=== PATIENT | female | born 1955 | race Caucasian/White ===

== ENCOUNTER 2017-03-01 08:36 | Emergency (ER) | payer BC ==
[2017-03-01 09:21] VITALS: BP 125/70
--- NOTE | 2017-03-01 09:56 | EDM.PDOC ---
ED HPI GENERAL MEDICAL PROBLEM - General Chief Complaint: Chest Pain Stated Complaint: chest pain Time Seen by Provider: 03/01/17 08:40 Source of Information: Reports: Patient History Limitations: Reports: No Limitations - History of Present Illness INITIAL COMMENTS - FREE TEXT/NARRATIVE: This is a 61yo F here for chest pain left sided early this am around 5 am. Patient states she usually has this pain and takes 2 nitro and it resolves. This time she took 3 nitro with some improvement but no improvement of her chest pressure. She states it happens the most frequently when she is sleeping around 5 am. Patient does snore and has not had a sleep study. She does not sleep well and takes otc sleep medication that helps her get to sleep but does not stay asleep. Patient has a history of angina and has been worked up for cardiac issues in the past. She has had a coronary angiogram on 08/10/16 with a normal assessment (50% ostial-left circumflex only) and diagnosed coronary vasospasm during the angiogram. Onset: Sudden Duration: Hour(s):, Constant, Improving Location: Reports: Chest Severity: Mild Improves with: Reports: Medication Worsens with: Reports: None Associated Symptoms: Reports: Chest Pain chest pressure Pain Score (Numeric/FACES): 2 - Related Data Allergies Allergy/AdvReac Type Severity Reaction Status Date / Time egg Allergy Airway Verified 03/01/17 09:03 Tightness meperidine HCl [From Demerol] Allergy Hallucinati Verified 03/01/17 09:03 ons Home Meds: Home Meds Omeprazole [Omeprazole] 20 mg PO DAILY 04/26/15 [History] Aspirin [Ecotrin] 81 mg PO DAILY 07/10/16 [History] Metoprolol Succinate [Toprol XL] 25 mg PO DAILY 07/10/16 [History] Nitroglycerin [Nitrostat] 0.4 mg SL ASDIRECTED PRN 07/10/16 [History] Fish Oil/DHA/EPA [Fish Oil 1,200 MG] 1 each PO DAILY 03/01/17 [History] Pravastatin [Pravachol] 20 mg PO BEDTIME 03/01/17 [History] amLODIPine [Norvasc] 5 mg PO BID 03/01/17 [History] buPROPion HCl [Wellbutrin Xl] 150 mg PO ASDIRECTED 03/01/17 [History] Past Medical History HEENT History: Reports: Impaired Vision Cardiovascular History: Reports: Angina, High Cholesterol, Hypertension Musculoskeletal History: Reports: Arthritis, Back Pain, Chronic Other Musculoskeletal History: Pt states that she has a long standing history of back, knee and shoulder pain that she has had therapy for in the past. Psychiatric History: Reports: Anxiety, Depression - Past Surgical History GI Surgical History: Reports: Cholecystectomy Female Surgical History: Reports: Breast Reduction, Hysterectomy Social & Family History - Family History Family Medical History: Unobtainable - Tobacco Use Smoking Status *Q: Former Smoker Used Tobacco, but Quit: Yes Month Tobacco Last Used: february Second Hand Smoke Exposure: Yes - Caffeine Use Caffeine Use: Reports: Coffee - Recreational Drug Use Recreational Drug Use: No ED ROS GENERAL - Review of Systems Review Of Systems: ROS reveals no pertinent complaints other than HPI. ED EXAM, GENERAL - Physical Exam Exam: See Below Exam Limited By: No Limitations General Appearance: Alert, WD/WN, No Apparent Distress Eye Exam: Bilateral Eye: EOMI, PERRL Ears: Normal External Exam Nose: Normal Inspection Throat/Mouth: Normal Inspection Head: Atraumatic, Normocephalic Neck: Normal Inspection Respiratory/Chest: No Respiratory Distress, Lungs Clear Cardiovascular: Normal Peripheral Pulses, Regular Rate, Rhythm GI/Abdominal: Normal Bowel Sounds Extremities: Normal Inspection Neurological: Alert, Oriented, CN II-XII Intact Skin Exam: Warm, Dry, Intact Course - Vital Signs Last Recorded V/S: Last Vital Signs Temp Pulse 65 03/01/17 10:08 Resp BP 125/70 03/01/17 10:08 Pulse Ox 98 03/01/17 10:08 - Orders/Labs/Meds Orders: Active Orders 24 hr Category Date Time Status EKG Documentation Completion [RC] ASDIRECTED Care 03/01/17 08:45 Active Labs: Laboratory Tests 03/01/17 03/01/17 03/01/17 Range/Units 09:15 09:15 09:15 WBC 5.9 D (4.0-11.0) K/uL RBC 4.13 (3.80-5.80) M/uL Hgb 12.9 (11.5-16.5) g/dL Hct 38.3 (37.0-47.0) % MCV 93 (76-96) fL MCH 31.2 (27.0-32.0) pg MCHC 33.7 (31.0-35.0) g/dL RDW 13.3 (11.0-16.0) % Plt Count 187 (150-500) K/uL MPV 11.1 H (6.0-10.0) fL Neut % (Auto) 45.4 (45.0-70.0) % Lymph % (Auto) 31.7 (20.0-40.0) % [place] % (Auto) 12.8 H (3.0-10.0) % Eos % (Auto) 9.4 H (1.0-5.0) % Baso % (Auto) 0.7 H (0.0-0.5) % Neut # (Auto) 2.66 (2.00-7.50) K/uL Lymph # (Auto) 1.86 (1.50-4.00) K/uL [place] # (Auto) 0.75 (0.20-0.80) K/uL Eos # (Auto) 0.55 H (0.04-0.40) K/uL Baso # (Auto) 0.04 (0.02-0.10) K/uL PT 9.5 (9.0-11.5) sec INR 1.0 (1.0-3.5) Sodium 140 (136-145) mmol/L Potassium 4.2 (3.5-5.1) mmol/L Chloride 104 (98-107) mmol/L Carbon Dioxide 28.1 (21.0-32.0) mmol/L Anion Gap 12.1 (5.0-15.0) mmol/L BUN 14 D (8-26) mg/dL Creatinine 0.72 D (0.55-1.02) mg/dL Est Cr Clr Drug Dosing 77.77 mL/min Estimated GFR (MDRD) > 60 (>60) MLS/MIN BUN/Creatinine Ratio 19.4 (6-25) Glucose 114 H (74-100) mg/dL Calcium 9.3 (8.5-10.1) mg/dL Total Bilirubin 0.5 (0.0-1.0) mg/dL AST 25 (15-37) U/L ALT 29 (12-78) U/L Alkaline Phosphatase 79 (46-116) U/L Troponin I < 0.017 (0.000-0.060) ng/mL B-Natriuretic Peptide 47 (0-125) pg/mL Total Protein 7.2 (6.4-8.2) g/dL Albumin 3.9 (3.4-5.0) g/dL Globulin 3.3 (2.2-4.2) g/dL Albumin/Globulin Ratio 1.2 (0.8-2.0) TSH, Ultra Sensitive 2.374 (0.358-3.740) uIU/mL Departure - Departure Time of Disposition: 10:00 Disposition: Home, Self-Care 01 Condition: Good Clinical Impression: Angina at rest Instructions: Angina Pectoris, [id number] Referrals: PCP,None [Ordering Only Provider] - Forms: ED Department Discharge Additional Instructions: Follow up with your burrer machine at your earliest convenience, especially if you are still having the pressure after the start of your new medication. Follow up in the ER if the pressure gets worse or the pressure/pain changes. 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 Imdur and all your other medication will stay the same. Discussed plan of care with Cardiology and will start Imdur as directed. No changes to other medications. Discussed f/u as instructed. Patient agrees with plan of care and f/u with Cardiology and ER/clinic as directed. F/u immediately if symptoms present again. - My Orders Last 24 Hours: My Active Orders 03/01/17 08:45 EKG Documentation Completion [RC] ASDIRECTED - Assessment/Plan Last 24 Hours: My Active Orders 03/01/17 08:45 EKG Documentation Completion [RC] ASDIRECTED
--- NOTE | 2017-03-01 12:41 | CR ---
DATE OF SERVICE: 03/01/2017 CLINICAL DATA: Chest pain. AP CHEST No priors. The heart size is normal. The lungs are clear. No pneumothorax. No pleural effusions. No other significant findings. IMPRESSION: No evidence of acute intrathoracic disease. [id number] [facility]
== END 2017-03-01 11:22 | disposition home or self-care (01) ==
LOC: LB.ED 08:36
DX: I20.9 Angina pectoris, unspecified (principal); I10 Essential (primary) hypertension; E78.00 Pure hypercholesterolemia, unspecified; F32.9 Major depressive disorder, single episode, unspecified; Z79.82 Long term (current) use of aspirin; Z79.899 Other long term (current) drug therapy; Z87.891 Personal history of nicotine dependence; Z88.6 Allergy status to analgesic agent; Z91.012 Allergy to eggs
CPT/HCPCS: 36415; 71010; 80053; 83880; 84443; 84484; 85025; 85610; 93005; 99285-25

== ENCOUNTER 2017-07-16 07:37 | Emergency (ER) | payer BC ==
[2017-07-16] MEDS ORDERED: Aspirin 81 MG Tab.Chew PO ONE (07:54)
[2017-07-16] MEDS ORDERED: Morphine 2 MG/ML Syringe IVPUSH ONE (07:54)
[2017-07-16] MEDS ORDERED: GI Cocktail Oral Solution 30 ML PO ONE (08:24)
[2017-07-16] MEDS: Morphine 10 MG/ML Syringe ONE ×2 (08:45→09:31)
--- NOTE | 2017-07-16 08:46 | EDM.PDOC ---
ED HPI GENERAL MEDICAL PROBLEM - General Chief Complaint: Chest Pain Stated Complaint: CHEST PAIN Time Seen by Provider: 07/16/17 08:15 Source of Information: Reports: Patient, RN History Limitations: Reports: No Limitations - History of Present Illness INITIAL COMMENTS - FREE TEXT/NARRATIVE: 61 yr female presents to ER with chest pain, started 2am today, woke her up from sleep. She took several nitro. under tongue for relief of pain and presents to ER this am. She was seen by MIRANDA Bell for initial work-up. Please refer to his notes for this. I did assume care for her 0815 this am. States pain has improved but persists to mid chest area. VS stable, NSR per EKG and chest x-ray normal. Troponin is normal. States history of blocked cardiac artery and unable to have stent. States last stress test adn echo were about 2 yr ago. Onset: Today Onset Date: 07/16/17 Onset Time: 02:00 Duration: Constant Location: Reports: Chest Quality: Reports: Pressure Severity: Moderate Improves with: Reports: Medication, Rest Mid-Sternal Pain Score (Numeric/FACES): 3 - Related Data Allergies Allergy/AdvReac Type Severity Reaction Status Date / Time egg Allergy Airway Verified 03/01/17 09:03 Tightness meperidine HCl [From Demerol] Allergy Hallucinati Verified 03/01/17 09:03 ons Home Meds: Home Meds Omeprazole 20 mg PO DAILY 04/26/15 [History] Aspirin [Ecotrin] 81 mg PO DAILY 07/10/16 [History] Metoprolol Succinate [Toprol XL] 25 mg PO DAILY 07/10/16 [History] Nitroglycerin [Nitrostat] 0.4 mg SL ASDIRECTED PRN 07/10/16 [History] Fish Oil/DHA/EPA [Fish Oil 1,200 MG] 1 each PO DAILY 03/01/17 [History] Pravastatin [Pravachol] 20 mg PO BEDTIME 03/01/17 [History] amLODIPine [Norvasc] 5 mg PO BID 03/01/17 [History] buPROPion HCl [Wellbutrin Xl] 150 mg PO ASDIRECTED 03/01/17 [History] atoMOXetine [Strattera] 40 mg PO DAILY 07/16/17 [History] Past Medical History HEENT History: Reports: Impaired Vision Cardiovascular History: Reports: Angina, High Cholesterol, Hypertension Musculoskeletal History: Reports: Arthritis, Back Pain, Chronic Other Musculoskeletal History: Pt states that she has a long standing history of back, knee and shoulder pain that she has had therapy for in the past. Psychiatric History: Reports: Anxiety, Depression - Past Surgical History GI Surgical History: Reports: Cholecystectomy Female Surgical History: Reports: Breast Reduction, Hysterectomy Social & Family History - Family History Family Medical History: Unobtainable - Tobacco Use Smoking Status *Q: Former Smoker Used Tobacco, but Quit: Yes Month/Year Tobacco Last Used: february Second Hand Smoke Exposure: Yes - Caffeine Use Caffeine Use: Reports: Coffee - Recreational Drug Use Recreational Drug Use: No ED ROS GENERAL - Review of Systems Review Of Systems: See Below Constitutional: Reports: Diaphoresis. Denies: Fever, Chills HEENT: Reports: No Symptoms Respiratory: Denies: Shortness of Breath, Wheezing Cardiovascular: Reports: Chest Pain (States pressure to midsternal chest area and upper epigastric area. ), Other (History of chest pain, angiogram in past, stress test and echo about 3 yr ago.). Denies: Blood Pressure Problem, Edema, Palpitations Endocrine: Reports: No Symptoms GI/Abdominal: Reports: Abdominal Pain, Other (History of ulcer). Denies: Constipation, Diarrhea : Reports: No Symptoms Musculoskeletal: Reports: Back Pain Skin: Reports: No Symptoms Neurological: Reports: No Symptoms Psychiatric: Reports: No Symptoms Hematologic/Lymphatic: Reports: No Symptoms Immunologic: Reports: No Symptoms ED EXAM, GENERAL - Physical Exam Exam: See Below Exam Limited By: No Limitations General Appearance: Alert, No Apparent Distress. No: Anxious Ears: Hearing Grossly Normal Nose: Normal Mucosa Throat/Mouth: Normal Voice Head: Atraumatic, Normocephalic Neck: Normal Inspection, Supple, Non-Tender Respiratory/Chest: No Respiratory Distress, Lungs Clear, Normal Breath Sounds Cardiovascular: Normal Peripheral Pulses, Regular Rate, Rhythm, No Edema, No Murmur Peripheral Pulses: 2+: Radial (L), Radial (R), Dorsalis Pedis (L), Dorsalis Pedis (R) GI/Abdominal: Normal Bowel Sounds, Soft, Non-Tender Back Exam: Normal Inspection Extremities: Normal Inspection, Normal Range of Motion, Non-Tender, No Pedal Edema Neurological: Alert, Oriented, Normal Cognition Psychiatric: Normal Affect Skin Exam: Warm, Other (occasional diaphoresis, somewhat pale) Lymphatic: No Adenopathy EKG INTERPRETATION EKG Date: 07/16/17 Time: 07:44 Rhythm: NSR Course - Vital Signs Last Recorded V/S: Last Vital Signs Temp 98.7 F 07/16/17 09:46 Pulse 70 07/16/17 09:46 Resp 18 07/16/17 09:46 BP 138/54 L 07/16/17 09:46 Pulse Ox 96 07/16/17 09:46 - Orders/Labs/Meds Orders: Active Orders 24 hr Category Date Time Status EKG Documentation Completion [RC] ASDIRECTED Care 07/16/17 07:53 Active Chest 1V Frontal [CR] Stat Exams 07/16/17 07:55 Taken Labs: Laboratory Tests 07/16/17 07/16/17 07/16/17 Range/Units 08:00 08:00 08:00 WBC 7.4 D (4.0-11.0) K/uL RBC 4.15 (3.80-5.80) M/uL Hgb 13.2 (11.5-16.5) g/dL Hct 38.8 (37.0-47.0) % MCV 94 (76-96) fL MCH 31.8 (27.0-32.0) pg MCHC 34.0 (31.0-35.0) g/dL RDW 13.0 (11.0-16.0) % Plt Count 216 (150-500) K/uL MPV 10.8 H (6.0-10.0) fL Neut % (Auto) 63.1 (45.0-70.0) % Lymph % (Auto) 22.4 (20.0-40.0) % [place] % (Auto) 9.3 (3.0-10.0) % Eos % (Auto) 4.9 (1.0-5.0) % Baso % (Auto) 0.3 (0.0-0.5) % Neut # (Auto) 4.68 (2.00-7.50) K/uL Lymph # (Auto) 1.66 (1.50-4.00) K/uL [place] # (Auto) 0.69 (0.20-0.80) K/uL Eos # (Auto) 0.36 (0.04-0.40) K/uL Baso # (Auto) 0.02 (0.02-0.10) K/uL PT (9.0-11.5) sec INR (1.0-3.5) APTT 21.7 L (27.0-35.0) SECONDS Sodium 140 (136-145) mmol/L Potassium 4.3 (3.5-5.1) mmol/L Chloride 104 (98-107) mmol/L Carbon Dioxide 23.0 (21.0-32.0) mmol/L Anion Gap 17.3 H (5.0-15.0) mmol/L BUN 15 (8-26) mg/dL Creatinine 0.75 (0.55-1.02) mg/dL Est Cr Clr Drug Dosing TNP Estimated GFR (MDRD) > 60 (>60) MLS/MIN BUN/Creatinine Ratio 20.0 (6-25) Glucose 124 H (74-100) mg/dL Calcium 8.0 L (8.5-10.1) mg/dL Total Bilirubin 0.4 (0.0-1.0) mg/dL AST 22 (15-37) U/L ALT 25 (12-78) U/L Alkaline Phosphatase 71 (46-116) U/L Troponin I < 0.017 (0.000-0.060) ng/mL Total Protein 7.1 (6.4-8.2) g/dL Albumin 3.7 (3.4-5.0) g/dL Globulin 3.4 (2.2-4.2) g/dL Albumin/Globulin Ratio 1.1 (0.8-2.0) 07/16/17 Range/Units 08:00 WBC (4.0-11.0) K/uL RBC (3.80-5.80) M/uL Hgb (11.5-16.5) g/dL Hct (37.0-47.0) % MCV (76-96) fL MCH (27.0-32.0) pg MCHC (31.0-35.0) g/dL RDW (11.0-16.0) % Plt Count (150-500) K/uL MPV (6.0-10.0) fL Neut % (Auto) (45.0-70.0) % Lymph % (Auto) (20.0-40.0) % [place] % (Auto) (3.0-10.0) % Eos % (Auto) (1.0-5.0) % Baso % (Auto) (0.0-0.5) % Neut # (Auto) (2.00-7.50) K/uL Lymph # (Auto) (1.50-4.00) K/uL [place] # (Auto) (0.20-0.80) K/uL Eos # (Auto) (0.04-0.40) K/uL Baso # (Auto) (0.02-0.10) K/uL PT 9.4 (9.0-11.5) sec INR 0.9 L (1.0-3.5) APTT (27.0-35.0) SECONDS Sodium (136-145) mmol/L Potassium (3.5-5.1) mmol/L Chloride (98-107) mmol/L Carbon Dioxide (21.0-32.0) mmol/L Anion Gap (5.0-15.0) mmol/L BUN (8-26) mg/dL Creatinine (0.55-1.02) mg/dL Est Cr Clr Drug Dosing Estimated GFR (MDRD) (>60) MLS/MIN BUN/Creatinine Ratio (6-25) Glucose (74-100) mg/dL Calcium (8.5-10.1) mg/dL Total Bilirubin (0.0-1.0) mg/dL AST (15-37) U/L ALT (12-78) U/L Alkaline Phosphatase (46-116) U/L Troponin I (0.000-0.060) ng/mL Total Protein (6.4-8.2) g/dL Albumin (3.4-5.0) g/dL Globulin (2.2-4.2) g/dL Albumin/Globulin Ratio (0.8-2.0) Meds: Medications Discontinued Medications Generic Name Dose Route Start Last Admin Trade Name Freq PRN Reason Stop Dose Admin Al Hydroxide/Mg Hydroxide 30 ml 07/16/17 08:24 07/16/17 08:25 Gi Cocktail PO 07/16/17 08:25 30 ml ONETIME ONE Administration Aspirin 324 mg 07/16/17 07:54 04/06/18 07:45 Aspirin PO 07/16/17 07:55 324 mg ONETIME ONE Administration Clopidogrel Bisulfate 600 mg 07/16/17 08:55 07/16/17 09:00 Plavix PO 07/16/17 08:56 600 mg ONETIME ONE Administration Clopidogrel Bisulfate Confirm 07/16/17 09:02 07/16/17 09:18 Plavix Administered 07/16/17 09:03 Not Given Dose 150 mg .ROUTE .STK-MED ONE Heparin Sodium (Porcine) 4,000 units 07/16/17 09:23 07/16/17 09:40 Heparin Sodium IVPUSH 07/16/17 09:24 4,000 units .BOLUS ONE Administration Sodium Chloride 1,000 mls @ 125 mls/hr 07/16/17 09:30 07/16/17 09:00 Normal Saline IV 125 mls/hr ASDIRECTED KRISTI Administration Heparin Sodium/Dextrose 25,000 units in 500 mls @ 20.684 mls/hr 07/16/17 09: 30 07/16/17 09:50 Heparin 25,000 Units In D5w 500 Ml IV 12 units/kg/hr TITRATE KRISTI 20.684 mls/hr Administration Protocol 12 UNITS/KG/HR Morphine Sulfate Confirm 07/16/17 07:55 07/16/17 09:31 Morphine Administered 07/16/17 07:56 10 mg Dose Administration 10 mg .ROUTE .STK-MED ONE Morphine Sulfate 2 mg 07/16/17 07:54 07/16/17 07:54 Morphine IVPUSH 07/16/17 07:55 2 mg ONETIME ONE Administration - Re-Assessments/Exams Free Text/Narrative Re-Assessment/Exam: 07/16/17 08:58 TC Usman Kim with Dr Drew, cardiology and Dr Mccord, hospitalist. Will transfer to [place], considering pt cardiac history and angiogram results in past, continued chest pain since 2 am. At this time the EKG shows NSR and troponins are negative. Dr Drew recommends Plavix 600 mg PO now and heparin qtt and bolus if time to start these locally. Dr Drew recommends treatment as ACS. All in agreement with this plan. Nurse, ANDRES Bautista states 45 min for ETA of transfer service. 07/16/17 09:17 Reviewed plan of care with pt and . Pt in agreement with this plan. Now states chest pain is relieved. BP 123/53, pulse 72 and SpO2=97%. 07/16/17 12:53 LE 0950 Air transport is on site and transferring IV tubings, etc. Pt states pain at 3 now. No change in location. Heparin bolus given and Heparin qtt to be started now. PTT completed and results pending. Pt to be transported to [facility], room location verified to staff. Forms completed, signed and sent with transport. Pt states she wishes to not be kept alive with machines. States DNR, but would want active treatment to this point. States a copy of her DNR is located at [facility] facility. Pt alert, talking and states relief of pain after transitioned to other cot and secured. Vital signs remain stable. 70-18-138/54, SpO2=96%. Chest x-ray pushed to [facility]. EKG faxed to Dr Drew, as well as face sheet. BP to bilateral, upper extremities are normal and similar readings. Pt reports no history of aneurysm. Chest x- ray reviewed and compared to 2017 x-ray and is improved. Pt transfered. Departure - Departure Time of Disposition: 09:50 Disposition: DC/Tfer to Acute Hospital 02 Reason for Transfer *Q: Other (possible PCI indicated) Condition: Good Clinical Impression: Chest pain at rest, Acute coronary syndrome Referrals: PCP,Unknown [Ordering Only Provider] - Forms: ED Department Discharge
[2017-07-16] MEDS ORDERED: Clopidogrel 75 MG Tab PO ONE (08:55)
[2017-07-16] MEDS ORDERED: Clopidogrel 75 MG Tab ONE (09:02)
[2017-07-16] MEDS ORDERED: Heparin Sodium 5,000 Units/ML Vial IVPUSH ONE (09:23)
[2017-07-16] MEDS ORDERED: Sodium Chloride 0.9% 1,000 ML IV SCH (09:30)
[2017-07-16] MEDS ORDERED: Heparin Sodium/D5W 25,000 UNITS/500 ML BAG IV SCH (09:30)
[2017-07-16 11:11] VITALS: BP 138/54
--- NOTE | 2017-07-16 11:48 | ER ---
DATE OF SERVICE: 07/16/2017 HISTORY OF PRESENT ILLNESS: A 61-year-old lady who comes in with complaints of angina type chest pain. She tells me she has had it many times before. It started during the night about 0200 hours waking her up. She has taken nitroglycerin tablets, taking 2 at a time. She is taking it a total of 8 of them since 0200 hours this morning. She states that she has felt sweaty initially, but this has resolved. She is not nauseated. The patient tells me this is similar to previous symptoms that she has had, but usually it goes away after an hour or 2, this time it did not. She currently rates her pain at 3/10, pointing to the central area of the chest. The patient denies running a fever. She denies being sick recently. She has been taking her current medications. She has a tobacco grader , Dr. Storm Perea, who has done multiple workups on her. She states that she is not a candidate for any kind of stent placement and is not really sure what else is going on. OBJECTIVE: GENERAL APPEARANCE: The patient is awake and alert. Pleasant and talkative. No respiratory distress at this time. VITAL SIGNS: Reviewed. Initial blood pressure is 122/67, sats are 97%, pulse is 76. HEENT: Oral mucous membranes moist. Tonsils not enlarged or injected. Pharynx not inflamed. NECK: Supple. LUNGS: Clear with slightly reduced air exchange throughout the lung martinez. CARDIAC: Heart sounds distinct. S1, S2 present. Regular rate. ABDOMEN: Soft, nontender. Bowel sounds are present. SKIN: Warm and dry. LAB AND X-RAY STUDIES: An EKG shows normal sinus rhythm. Labs started at this point include a CBC, CMP, and troponin. The patient was given 4 baby aspirin. I also gave her morphine 2 mg IV which brought her pain down to just some mild pressure. The patient did have a short episode of nausea, but did not vomit, and she refused an antiemetic. WORKING DIAGNOSIS: Chest pain with history of angina. Lab results are pending. At this point, my shift ended. I referred the patient to the oncoming provider , Marcia Jackson, who assumed care for this patient at this point. For further details, refer to her dictation. CRS/MODL /[id number] MTDD
--- NOTE | 2017-07-18 11:02 | CR ---
AP PORTABLE CHEST X-RAY, 07/12/17 Comparison is made to a prior exam dated 02/2017. The heart and lungs are stable. No evidence of acute intrathoracic disease. [id number] [facility]
== END 2017-07-16 10:00 ==
LOC: LB.ED 07:37
DX: I24.9 Acute ischemic heart disease, unspecified (principal); I10 Essential (primary) hypertension; E78.00 Pure hypercholesterolemia, unspecified; Z79.899 Other long term (current) drug therapy; Z87.891 Personal history of nicotine dependence; Z91.012 Allergy to eggs; Z88.5 Allergy status to narcotic agent
CPT/HCPCS: 36415; 71045; 80053; 84484; 85025; 85610; 85730; 93005; 96374; 96375; 99285-25; A9270-GY; J1644; J2270; J7040

== ENCOUNTER 2018-12-22 07:46 | Day surgery (SDC) | payer MEDICARE, BC ==
[~2018-12-22 07:46] MED LIST: Metoclopramide 10 MG/2 ML SDV IV PRN; Sodium Chloride 0.9% 1,000 ML IV SCH
[2018-12-22] MEDS ORDERED: Propofol 1,000 MG/100 ML SDV ONE (10:15)
[2018-12-22 11:18] VITALS: BP 137/77; PULSE 84
--- NOTE | 2018-12-23 07:44 | OR ---
DATE OF OPERATION: 12/22/2018 SURGEON: Aníbal Ott MD PREOPERATIVE DIAGNOSIS: Surveillance colonoscopy. POSTOPERATIVE DIAGNOSIS: Surveillance colonoscopy. PROCEDURE: Colonoscopy with polypectomy. ANESTHESIA: MAC. ESTIMATED BLOOD LOSS: Minimal. COMPLICATIONS: None. INDICATION FOR THE PROCEDURE: The patient is a 63-year-old female with an aunt who has had colon cancer. She does have a personal history of colorectal polyps as well. Last colonoscopy was 5 years ago and was normal. Otherwise, does have chronic constipation. Otherwise, no recent changes in bowel habits or blood in the stool. DESCRIPTION OF PROCEDURE: Informed consent was obtained from the patient. The patient was taken to the operating room and placed on the table in left lateral decubitus position. Monitored anesthesia care was administered. Digital rectal exam was performed and was normal. Colonoscope then was advanced through the anus, directed towards the cecum. Her sigmoid colon was quite torturous. Colonoscope changed for a Peds colonoscope, then able to navigate a very tortuous sigmoid and transverse colon to reach the cecum. She did need to be placed on her back in supine position as well. The cecum was reached and identified by appendiceal orifice and ileocecal valve. The colonoscope was then slowly withdrawn. She did have a small sessile polyp or small semipedunculated polyp at the hepatic flexure. This was removed by hot snare polypectomy. The polyp was retrieved. The remainder of the colon was normal. FINDINGS: Hepatic flexure polyp. RECOMMENDATIONS: Would recommend repeat surveillance colonoscopy in 5 years. XAVIER/SHAQ /[id number]
== END 2018-12-22 11:55 | disposition home or self-care (01) ==
LOC: LB.SDS 07:46
PROVIDERS: ATTEND Surgery
DX: Z12.11 Encounter for screening for malignant neoplasm of colon (principal); D12.3 Benign neoplasm of transverse colon; I10 Essential (primary) hypertension; Z88.5 Allergy status to narcotic agent; Z85.038 Personal history of other malignant neoplasm of large intestine; Z86.010 Personal history of colon polyps; K59.09 Other constipation; K63.89 Other specified diseases of intestine
CPT/HCPCS: 45385; 88305; G0121; J2704; J7030

== ENCOUNTER 2022-03-13 09:55 | Emergency (ER) | payer MEDICARE, BC ==
[2022-03-13 10:45] VITALS: BP 112/92; PULSE 120
[2022-03-13] MEDS ORDERED: Ketorolac 60 MG/2 ML SDV IM ONE (10:45)
[2022-03-13] MEDS ORDERED: Ketorolac 60 MG/2 ML SDV ONE (10:52)
== END 2022-03-13 11:35 | disposition home or self-care (01) ==
LOC: LB.ED 09:57
DX: R33.9 Retention of urine, unspecified (principal); E78.00 Pure hypercholesterolemia, unspecified; I10 Essential (primary) hypertension; Z91.012 Allergy to eggs; Z79.82 Long term (current) use of aspirin; Z79.899 Other long term (current) drug therapy
CPT/HCPCS: 36415; 51702; 80048; 81003; 85027; 96372; 99283; J1885

== ENCOUNTER 2022-04-02 08:54 | Emergency (ER) | payer MEDICARE, BC ==
[2022-04-02] MEDS ORDERED: Ketorolac 60 MG/2 ML SDV IM ONE (09:44)
[2022-04-02] MEDS ORDERED: Ketorolac 60 MG/2 ML SDV ONE (09:51)
[2022-04-02 10:10] VITALS: BP 132/66; PULSE 87
== END 2022-04-02 10:00 | disposition home or self-care (01) ==
LOC: LB.ED 08:54
DX: S70.01XA Contusion of right hip, initial encounter (principal); E78.00 Pure hypercholesterolemia, unspecified; I10 Essential (primary) hypertension; M19.90 Unspecified osteoarthritis, unspecified site; Z88.5 Allergy status to narcotic agent; Z91.012 Allergy to eggs; Z79.82 Long term (current) use of aspirin; Z79.899 Other long term (current) drug therapy; W01.0XXA Fall on same level from slipping, tripping and stumbling without subsequent striking against object, initial encounter; Y92.000 Kitchen of unspecified non-institutional (private) residence as the place of occurrence of the external cause
CPT/HCPCS: 73521; 96372; 99283; J1885

== ENCOUNTER 2023-07-02 10:06 | Emergency (ER) | payer MEDICARE, BC ==
[2023-07-02] MEDS: Nitroglycerin 0.4 MG Tab.SL SL ONE (10:20)
[2023-07-02] MEDS: Aspirin 81 MG Tab.Chew PO ONE (10:20)
[2023-07-02 10:42] LABS: BASOPHILS ABSOLUTE AUTO 0.03 K/uL (0.02-0.10); BASOPHILS PERCENT AUTO 0.4 % (0.0-0.5); EOSINOPHILS ABSOLUTE AUTO 0.36 K/uL (0.04-0.40); EOSINOPHILS PERCENT AUTO 4.8 % (1.0-5.0); HEMATOCRIT 41.3 % (37.0-47.0); HEMOGLOBIN 13.7 g/dL (11.5-16.5); LYMPHOCYTES ABSOLUTE AUTO 2.46 K/uL (1.50-4.00); LYMPHOCYTES PERCENT AUTO 32.7 % (20.0-40.0); MEAN CORPUSCULAR HEMOGLOBIN 30.8 pg (27.0-32.0); MEAN CORPUSCULAR HGB CONC 33.2 g/dL (31.0-35.0); MEAN CORPUSCULAR VOLUME 93 fL (76-96); MEAN PLATELET VOLUME 10.7 fL (6.0-10.0); MONOCYTES ABSOLUTE AUTO 0.95 K/uL (0.20-0.80); MONOCYTES PERCENT AUTO 12.6 % (3.0-10.0); NEUTROPHILS ABSOLUTE AUTO 3.73 K/uL (2.00-7.50); NEUTROPHILS PERCENT AUTO 49.5 % (45.0-70.0); PLATELET COUNT,PLT 231 K/uL (150-500); RED BLOOD CELL COUNT 4.45 M/uL (3.80-5.80); RED CELL DISTRIBUTION WIDTH 14.4 % (11.0-16.0); WHITE BLOOD CELL COUNT,WBC 7.5 K/uL (4.0-11.0)
[2023-07-02 11:04] LABS: ALANINE AMINOTRANSFERASE,ALT 27 U/L (12-78); ALBUMIN 3.8 g/dL (3.4-5.0); ALKALINE PHOSPHATASE 89 U/L (46-116); ANION GAP 13.7 mmol/L (5.0-15.0); ASPARTATE AMNIOTRANSFERASE,AST 23 U/L (15-37); BILIRUBIN TOTAL 0.7 mg/dL (0.0-1.0); BLOOD UREA NITROGEN,BUN 14 mg/dL (8-26); BUN/CREATININE RATIO 21.9 (6-25); CALCIUM 9.2 mg/dL (8.5-10.1); CARBON DIOXIDE,CO2 24.7 mmol/L (21.0-32.0); CHLORIDE,CL 103 mmol/L (98-107); CREATININE 0.64 mg/dL (0.55-1.02); EST CRCL DRUG DOSING (CG) 80.68 mL/min; ESTIMATED GFR 96 mL/min (>60); GLUCOSE RANDOM 119 mg/dL (74-100); INR 0.9 (1.0-3.5); POTASSIUM,K 4.4 mmol/L (3.5-5.1); PROTEIN TOTAL,TP 7.7 g/dL (6.4-8.2); SODIUM,NA 137 mmol/L (136-145)
[2023-07-02 11:05] LABS: PROTHROMBIN TIME 9.6 sec (9.0-11.5)
[2023-07-02 11:18] LABS: TROPONIN I HIGH SENSITIVITY < 4.0 pg/ml (<=60.4)
[2023-07-02] MEDS: Ketorolac 30 MG/ML SDV IVPUSH ONE (11:49)
[2023-07-02 15:58] VITALS: BP 148/74; PULSE 81
== END 2023-07-02 14:24 | disposition home or self-care (01) ==
LOC: LB.ED 10:06
DX: R07.89 Other chest pain (principal); I10 Essential (primary) hypertension; E78.00 Pure hypercholesterolemia, unspecified; Z90.49 Acquired absence of other specified parts of digestive tract; Z90.710 Acquired absence of both cervix and uterus; Z79.82 Long term (current) use of aspirin; Z79.899 Other long term (current) drug therapy; Z91.012 Allergy to eggs; Z88.8 Allergy status to other drugs, medicaments and biological substances
CPT/HCPCS: 36415; 71045; 71250; 80053; 83690; 84484; 85025; 85610; 85730; 93005; 96374; 99285; A9270; J1885; 93010; 99283

== ENCOUNTER 2024-02-03 08:54 | Day surgery (SDC) | payer MEDICARE, BC ==
[2024-02-03] MEDS: Sodium Chloride 0.9% 500 ML IV ONE (09:20)
[2024-02-03] MEDS ORDERED: Propofol 1,000 MG/100 ML SDV ONE (12:00)
[2024-02-03] MEDS ORDERED: Lidocaine 1% 30 ML SDV ONE (12:00)
[2024-02-03 12:26] VITALS: BP 143/71; PULSE 85
== END 2024-02-03 13:05 | disposition home or self-care (01) ==
LOC: LB.SDS 08:54
PROVIDERS: ATTEND Surgery
DX: Z12.11 Encounter for screening for malignant neoplasm of colon (principal); D12.3 Benign neoplasm of transverse colon; K57.30 Diverticulosis of large intestine without perforation or abscess without bleeding; I12.9 Hypertensive chronic kidney disease with stage 1 through stage 4 chronic kidney disease, or unspecified chronic kidney disease; F31.81 Bipolar II disorder; F41.9 Anxiety disorder, unspecified; Z87.891 Personal history of nicotine dependence; Z79.82 Long term (current) use of aspirin; Z79.899 Other long term (current) drug therapy
CPT/HCPCS: 88305; J2704; J7040